=== PATIENT | female | born 1950 | race Caucasian/White ===

== ENCOUNTER 2017-10-26 19:14 | Emergency (ER) | payer OTHER ==
[~2017-10-26] VITALS: Ht 147.3 cm; Wt 49.9 kg
--- NOTE | 2017-10-26 20:10 | ED NEURO DEFICIT/STROKE ---
History of Present Illness General Chief Complaint: Altered Mental Status Stated Complaint: AMS Source: patient, family, old records Exam Limitations: confusion Vital Signs & Intake/Output Vital Signs & Intake/Output Vital Signs Date Time Temp Pulse Resp B/P B/P Pulse O2 O2 Flow FiO2 Mean Ox Delivery Rate 10/26 2120 99.3 79 16 115/56 99 Room Air 10/26 1944 97 Room Air 10/26 1924 97.7 78 18 116/70 97 Room Air Allergies Coded Allergies: heparin (UNSURE OF REACTION 10/26/17) Triage Note: PT TOED WITH FOR AMS "SHE TURNED DAFFY AN HOUR AGO" STATES WENT TO THE GYM, HAD DINNER, AND NOW IS HAVING TROUBLE "GETTING HER WORDS OUT" PT IS ALERT TO PERSON, PLACE AND TIME. 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 PER ,"SHE'S WALKING WITH SMALL STEPS" PHM OF TBI AND SEIZURES. TAKES KEPPRA 500 MG BID. LAST SEIZURE WILL BE 4 YRS AGO IN NOVEMBER. DENIES ETOH. VICODIN 10 MG'S FOR CHRONIC LOW BACK PAIN. LAST TAKEN THIS AM Triage Nurses Notes Reviewed? yes HPI: Patient brought in to the emergency department by her for an acute onset of confusion. states that everything was fine during the day and the wound to the gym this afternoon. During dinner it appeared that the patient can 't just not off. He notes that she would slump over but when he called her name she would sit right back up. But since that first episode she has been confused. The patient is alert and oriented 3 but is confused to events. states that this has never happened before. Patient does have a history of seizures. Her last seizure was 4 years ago but at that time they cannot even be sure if it was a seizure as it was unwitnessed at the time. Patient has been compliant with her medications. Patient does take Xanax 2-3 times a day but states that she has not taken more than she is supposed to. Past History Travel History Traveled to [place] past 21 day No Medical History Any Pertinent Medical History? see below for history Neurological: migraine, seizure, TBI Cardiovascular: hypertension, hyperlipidemia Gastrointestinal: GERD, LARGE INTESTINE PERFORATI Musculoskeletal: chronic back pain, osteoarthritis Surgical History Surgical History: non-contributory Psychosocial History What is your primary language Malay Tobacco Use: Never used ETOH Use: occasional use Illicit Drug Use: denies illicit drug use Family History Hx Contributory? No Review of Systems Review of Systems Constitutional: Reports: no symptoms. EENTM: Reports: no symptoms. Respiratory: Reports: no symptoms. Cardiovascular: Reports: no symptoms. GI: Reports: no symptoms. Genitourinary: Reports: no symptoms. Musculoskeletal: Reports: no symptoms. Skin: Reports: no symptoms. Neurological/Psychological: Reports: see HPI, confusion. Hematologic/Endocrine: Reports: no symptoms. Immunologic/Allergic: Reports: no symptoms. All Other Systems: Reviewed and Negative Physical Exam Physical Exam General Appearance: well developed/nourished, alert, awake, mild distress Head: atraumatic, normal appearance Eyes: Bilateral: PERRL, EOMI. Ears, Nose, Throat: normal ENT inspection, moist mucous membrane, hearing grossly normal Neck: normal inspection, supple, full range of motion Respiratory: normal breath sounds, chest non-tender, no respiratory distress, lungs clear Cardiovascular: regular rate/rhythm, normal peripheral pulses Gastrointestinal: normal bowel sounds, soft, non-tender, no organomegaly Back: normal inspection, normal range of motion Extremities: normal range of motion Psychiatric: awake, alert, oriented x 3 Cranial Nerves: normal hearing, normal speech, PERRL Coordination/Gait: normal finger to nose, normal gait, SEE BELOW Motor/Sensory: motor deficit, SEE BELOW Skin: intact, normal color, warm/dry Comments: SLIGHT DRIFT TO RIGHT LEG, NORMAL MOTOR WITH PLANTAR AND DORSAL FLEXTION. UNABLE TO FOLLOW SERIAL TASKS, CANNOT DRAW A CLOCK (PUTS THE 12, 3, 6 BUT THEN DOESN'T KNOW WHAT TO DO), UNABLE TO SPELL WORLD BACKWARD, CANNOT DO SERIAL 7'S. D/W DR. CHAUDHRY, CONSISTENT WITH DELERIUM AND NOT CVA. Core Measures CVA/TIA Diagnosis: Yes NIH Stroke Scale NIH Stroke Scale Response Value Level of Consciousness alert 0 LOC Questions answers both correctly 0 LOC Commands obeys one correctly 1 Best Gaze normal 0 Visual Jay no visual loss 0 Facial Paresis normal 0 Motor Arm - Left no drift 0 Motor Arm - Right no drift 0 Motor Leg - Left no drift 0 Motor Leg - Right drift 1 Limb Ataxia present in one limb 1 Best Language no aphasia 0 Dysarthria normal articulation 0 Total 3 Date Last Known Well: 10/26/17 Time Last Known Well: 1800 Symptom Start Date: 10/26/17 Symptom Start Time: 1800 Reason tPA not ordered Medical Contraindication Swallow Evaluation Pass Swallow eval date 10/26/17 Swallow eval time 2005 Sepsis Present: No Sepsis Focused Exam Completed? No Progress Differential Diagnosis: drug intoxication, electrolyte imbalance, intracranial Hem., intracranial mass/tumor, seizure disorder, stroke Plan of Care: Orders Procedure Date/time Status EKG 10/27 2003 Active URINE DRUG SCREEN FOR ER ONLY 10/26 2002 Active URINALYSIS 10/26 2002 Complete PARTIAL THROMBOPLASTIN TIME 10/26 2002 Complete PROTHROMBIN TIME 10/26 2002 Complete COMPREHENSIVE METABOLIC PANEL 10/26 2002 Complete CBC WITHOUT DIFFERENTIAL 10/26 2002 Complete TROPONIN LEVEL 10/27 1999 Complete Laboratory Tests 10/26/17 2105: Methadone Screen Pending, Barbiturate Screen Pending, Ur Phencyclidine Scrn Pending, Amphetamines Screen Pending, U Benzodiazepines Scrn Pending, Urine Cocaine Screen Pending, Urine Cannabis Screen Pending, Urine Color YEL, Urine Clarity CLEAR, Urine pH 6.0, Ur Specific [place] 1.010, Urine Protein NEG, Urine Ketones NEG, Urine Nitrite NEG, Urine Bilirubin NEG, Urine Urobilinogen 0.2, Ur Leukocyte Esterase NEG, Ur Microscopic EXAM NOT REQUIRED, Urine Hemoglobin NEG, Urine Glucose NEG 10/26/172003: Troponin I Cancelled 10/26/171999: Anion Gap 11, Estimated GFR > 60, BUN/Creatinine Ratio 24.3, Glucose 96, Calcium 9.1, Total Bilirubin 1.1, AST 35, ALT 39, Alkaline Phosphatase 53, Troponin I < 0.01, Total Protein 7.3, Albumin 4.7, Globulin 2.6, Albumin/Globulin Ratio 1.8, PT 10.5, INR 0.96, APTT 21 L, CBC w Diff MAN DIFF ORDERED, RBC 3.99 L, MCV 88.9, MCH 29.8, MCHC 33.5, RDW 13.2, MPV 10.8 H, Segmented Neutrophils 63, Lymphocytes 31, Monocytes 4, Eosinophils 1, Basophils 1, Platelet Estimate ADEQUATE, Hypochromic-Microcytic 1+, Anisocytosis 1+ Diagnostic Imaging: Viewed by Me: Radiology Read, CT Scan. Discussed w/RAD: Radiology Read, CT Scan. Radiology Impression: PATIENT: DIVINA SIMMONS PRESENT AGE: 67 PATIENT ACCOUNT NO: [id number] : 51 LOCATION: [facility] ORDERING PHYSICIAN: Ha Pickett MD SERVICE DATE: 10/26/17 EXAM TYPE: CAT - CT HEAD WO IV CONTRAST EXAMINATION: CT HEAD WITHOUT CONTRAST CLINICAL INFORMATION: Altered mental status. Question stroke. COMPARISON: No relevant prior imaging. TECHNIQUE: Contiguous axial imaging was performed from the skull base to vertex without intravenous administration of contrast. DLP: 613.88 mGy-cm FINDINGS: There is asymmetric prominence of the subarachnoid fluid at the anterior aspect of the left middle cranial fossa and there is asymmetric widening of the left sylvian fissure that presumably represents the presence of an arachnoid cyst. There is no acute intracranial hemorrhage. No intracranial mass effect or midline shift. Lateral and third ventricles are normal. No hydrocephalus. Lisa-white matter differentiation is grossly preserved and there is no evidence of acute territorial infarct. The calvarium and skull base are intact. Mastoid air cells and middle ear cavities are well-aerated. Visualized paranasal sinuses are well-aerated. IMPRESSION: No evidence of acute territorial infarct or hemorrhage. Incidentally there is an arachnoid cyst within the left middle cranial fossa that extends into and causes asymmetric expansion of the left sylvian fissure. This critical result was discussed with Ha Pickett at 10/26/2017 8:24 PM and it was ascertained that the content and urgency of the report was understood at the time of direct communication. DICTATED BY: Panchito Chiu MD DATE/TIME DICTATED:10/26/172019 MUSEUM TOUR GUIDE:PAPI DATE /TIME TRANSCRIBED:10/26/172019 CONFIDENTIAL, DO NOT COPY WITHOUT APPROPRIATE AUTHORIZATION. <Electronically signed in Other Vendor System> SIGNED BY: Panchito Chiu MD 10/26/172027 CXR Impression: PATIENT: DIVINA SIMMONS PRESENT AGE : 67 PATIENT ACCOUNT NO: [id number] : 51 LOCATION: [facility] ORDERING PHYSICIAN: Ha Pickett MD SERVICE DATE: 10/26/17 EXAM TYPE: RAD - XRY-PORTABLE CHEST XRAY EXAMINATION: XR PORTABLE CHEST CLINICAL INFORMATION: Chest pain. COMPARISON: None TECHNIQUE: Portable frontal view of the chest was obtained. 8:04 PM FINDINGS: No significant abnormality is noted involving the heart, lungs, mediastinum, bony thorax or soft tissues. IMPRESSION: Unremarkable examination. DICTATED BY: Hoang Aguilar MD DATE/TIME DICTATED:10/26/172099 MUSEUM TOUR GUIDE:PAPI DATE/TIME TRANSCRIBED:10/26/172099 CONFIDENTIAL, DO NOT COPY WITHOUT APPROPRIATE AUTHORIZATION. <Electronically signed in Other Vendor System> SIGNED BY: Hoang Aguilar MD 10/26/172103 Initial ED EKG: SR, LVH BY VOLTAGE. Comments: All symptoms have resolved. Patient remains alert and oriented 3. Patient is now able to do serial tasks. Patient can't spell rolled backwards. Patient still denies taking an extra Xanax. Lab and CAT scan results have been discussed with the patient and her . Her feels comfortable taking her home and he will take tomorrow off from work to keep an eye on her. He also promises to bring her immediately back to the emergency department if the symptoms come back. Departure Departure Disposition: HOME OR SELF CARE Condition: Stable Clinical Impression Primary Impression: Acute delirium Referrals: Patient Has No Primary Care Dr (PCP/Family) Additional Instructions: Return immediately if the symptoms return or for any concerns. Departure Forms: Customer Survey General Discharge Information
[2017-10-26 20:25] LABS: HEMATOCRIT 35.5 % (37-47); MEAN CORPUSCULAR HGB 29.8 PG (27.0-31.0); MEAN CORPUSCULAR HGB CONC 33.5 G/DL (33.0-37.0); MEAN CORPUSCULAR VOLUME 88.9 FL (81.0-99.0); MEAN PLATELET VOLUME 10.8 FL (7.4-10.4); PLATELET COUNT 168 /CUMM (130-400); RBC DISTRIBUTION WIDTH 13.2 % (11.5-14.5); RED BLOOD CELL CT 3.99 /CUMM (4.20-5.40); WHITE BLOOD CELL COUNT 10.3 /CUMM (4.8-10.8)
[2017-10-26 20:26] LABS: PT 10.5 SEC (9.4-12.5); PTT 21 SEC (25-37)
--- NOTE | 2017-10-26 20:28 | CT SCAN REPORT ---
EXAMINATION: CT HEAD WITHOUT CONTRAST CLINICAL INFORMATION: Altered mental status. Question stroke. COMPARISON: No relevant prior imaging. TECHNIQUE: Contiguous axial imaging was performed from the skull base to vertex without intravenous administration of contrast. DLP: 613.88 mGy-cm FINDINGS: There is asymmetric prominence of the subarachnoid fluid at the anterior aspect of the left middle cranial fossa and there is asymmetric widening of the left sylvian fissure that presumably represents the presence of an arachnoid cyst. There is no acute intracranial hemorrhage. No intracranial mass effect or midline shift. Lateral and third ventricles are normal. No hydrocephalus. Lisa-white matter differentiation is grossly preserved and there is no evidence of acute territorial infarct. The calvarium and skull base are intact. Mastoid air cells and middle ear cavities are well-aerated. Visualized paranasal sinuses are well-aerated. IMPRESSION: No evidence of acute territorial infarct or hemorrhage. Incidentally there is an arachnoid cyst within the left middle cranial fossa that extends into and causes asymmetric expansion of the left sylvian fissure. This critical result was discussed with Ha Pickett at 10/26/2017 8:24 PM and it was ascertained that the content and urgency of the report was understood at the time of direct communication.
--- NOTE | 2017-10-26 21:04 | RADIOLOGY REPORT ---
EXAMINATION: XR PORTABLE CHEST CLINICAL INFORMATION: Chest pain. COMPARISON: None TECHNIQUE: Portable frontal view of the chest was obtained. 8:04 PM FINDINGS: No significant abnormality is noted involving the heart, lungs, mediastinum, bony thorax or soft tissues. IMPRESSION: Unremarkable examination.
[2017-10-26 21:21] VITALS: BP 115/56
== END 2017-10-26 21:49 ==
LOC: ERH 19:14
PROVIDERS: Emergency Medicine
DX: R41.0 Disorientation, unspecified (principal)
CPT/HCPCS: 71045; 80307; 81003; 93005; 93010